=== PATIENT | female | born 1990 | race Caucasian/White ===

== ENCOUNTER 2023-09-19 08:48 | Emergency (ER) | payer BC, SELFPAY ==
[2023-09-19 08:50] VITALS: BP 125/87; PULSE 102; RESP 18; TEMP 36.7; O2SAT 98; BMI 37.2
[2023-09-19 08:54] VITALS: BP 125/87; PULSE 94; O2SAT 97
--- NOTE | 2023-09-19 08:56 | PC.NURSE ---
DR HOOKS AT BEDSIDE
--- NOTE | 2023-09-19 08:59 | XR_ITS ---
FINAL REPORT CLINICAL HISTORY: fall yesterday, anterior pain FINDINGS: Left ankle Three views were obtained. There is no acute fracture or dislocation. The joint spaces appear normal. There is mild soft tissue swelling about the ankle. IMPRESSION: No acute process. Reviewed, Interpreted and Dictated by Kishor Clifton MD Transcribed by Marie Álvarez Authenticated and [facility]
--- NOTE | 2023-09-19 08:59 | ED_ITS ---
Discharge Plan Disposition Patient Disposition: Home, Self-Care Condition: Good Prescriptions Prescriptions: No Action aspirin [Aspir-81] 81 mg Tablet,Delayed Release (Dr/Ec) 81 mg PO DAILY Referrals Follow up/Referrals: Nan Núñez APRN [Primary Care Provider] - See instructions Activity Restrictions/Add. Instructions Additional Instructions/Restrictions: You were evaluated in the ER. You are appropriate for discharge at this time. Use the crutches if needed to help you get around. Perform range of motion exercises multiple times a day, tracing the capital letters of the alphabet with your big toe. Take Tylenol and ibuprofen for pain, do not exceed the recommended doses on the bottle. Follow-up with your primary care physician in a few days for reevaluation. Return to the ER with new, worsening, or otherwise concerning symptoms. Clinical Impressions Clinical Impression: Ankle pain, left Print Language Print Language: Georgian Discharge ED Provider: Jose Layne General Adult HPI General Chief complaint: PAIN Stated complaint: AO left ankle poss broke Time Seen by Provider: 09/19/23 08:55 History of Present Illness HPI narrative: 32-year-old male presents to the ER for concerns of left ankle pain. She states she fell yesterday and thought she may be broke it but was able to walk on it with her 's assistance. She put a brace that she had from a previous ankle fracture and was able to ambulate yesterday. This morning when she woke up she had severe pain with weightbearing and decided to come to the ER for an x-ray. She is worried about possible fracture. Patient states most of her pain is in the front part of her ankle. Her only daily medication is aspirin. Related Data Home Medications ?Medication ?Instructions ?Recorded ?Confirmed aspirin 81 mg tablet,delayed 81 mg PO DAILY 09/19/23 09/19/23 release Allergies Allergy/AdvReac Type Severity Reaction Status Date / Time acetaminophen [From Percocet] Allergy Verified 09/19/23 09:05 oxycodone [From Percocet] Allergy Verified 09/19/23 09:05 [facility] Disclaimer: The information contained in this section may have been updated after the patient was seen, as this information can be updated by other users. Surgical History (Updated 09/19/23 @ 09:11 by Sharmin Wilfrid, RN) S/P total hysterectomy with removal of both tubes and ovaries History of renal stent Status post biopsy of kidney Hx of appendectomy History of cholecystectomy H/O: hysterectomy Social History Smoking Status: Never smoker alcohol intake: never current occupational status: other Travel in the last 8 weeks: None ROS Obtained: Yes All systems reviewed & no additional complaints except as documented Musculoskeletal Musculoskeletal: Reports arthralgias and Reports joint swelling Physical Exam General General appearance: alert and in no apparent distress Head Head exam: atraumatic and normocephalic Eye Eye exam: Present PERRL and EOMI ENT ENT exam: Present mucous membranes moist Neck Neck exam: Present normal inspection and full ROM Chest Chest inspection: Present symmetric chest wall rise Respiratory Respiratory exam: Absent respiratory distress or stridor Cardiovascular Cardiovascular exam: Present regular rate and normal rhythm Extremities Exam Extremities exam: Present full ROM (Painful but full) and tenderness (Tenderness palpation of the anterior ankle without deformity, neurovascularly intact, no other specific locations of tenderness) Neurological Exam Neurological exam: Present alert and oriented X3; Absent motor sensory deficit Psychiatric Psychiatric exam: Present normal affect and normal mood Skin Skin exam: Present warm and dry Medical Decision Making Anatoly Inquiry Pt receiving controlled substance: No Vital Signs: 09/19/23 08:50 09/19/23 08:54 09/19/23 09:00 Temperature 98.0 F Temperature Source Oral Pulse Rate 94 H 88 Pulse Rate [Radial] 102 H Respiratory Rate 18 Blood Pressure 125/87 122/78 Blood Pressure [Right Arm] 125/87 Blood Pressure Mean [Right Arm] 99 Blood Pressure Source [Right Arm] Automatic Cuff Blood Pressure Position [Right Arm] Sitting 02 Sat by Pulse Oximetry 98 97 96 Oxygen Delivery Method Room Air Room Air Room Air 09/19/23 09:31 09/19/23 10:01 Temperature Temperature Source Pulse Rate 89 90 Pulse Rate [Radial] Respiratory Rate Blood Pressure 125/86 125/81 Blood Pressure [Right Arm] Blood Pressure Mean [Right Arm] Blood Pressure Source [Right Arm] Blood Pressure Position [Right Arm] 02 Sat by Pulse Oximetry 98 98 Oxygen Delivery Method Room Air Orders (Tests/Meds): ED MEDICATIONS Discontinued Medications Generic Name Dose Route Start Last Admin Trade Name Freq PRN Reason Stop Dose Admin Acetaminophen 1,000 mg 09/19/23 09:00 09/19/23 09:03 Acetaminophen 500mg Tab PO 09/19/23 09:01 1,000 mg ONCE ONE Administration Ibuprofen 600 mg 09/19/23 09:00 09/19/23 09:03 Ibuprofen 600 Mg Tablet PO 09/19/23 09:01 600 mg ONCE ONE Administration ORDERS Category Date Time Status Ankle XR - Left minimum 3 Views [XR ankle LT min 3V] Exams 09/19/23 08:59 Taken Stat Medical Decision Narrative: In summary, this 32-year-old female presents to the emergency department today with left ankle pain. On initial evaluation patient is hemodynamically stable, afebrile, mild tenderness to palpation of the anterior ankle without deformity or significant swelling, neurovascularly intact distally. Differential diagnosis includes but is not limited to fracture, dislocation, sprain, soft tissue injury. Based on these concerns, I ordered x-ray left ankle. Patient received Tylenol, ibuprofen in the ER. X-ray personally interpreted does not demonstrate acute osseous injury, see radiology read for final interpretation. On reassessment patient continues to be stable. I encouraged her to continue using the brace and provided crutches for ambulation assistance. I gave her instructions on range of motion exercises, pain management, follow-up, and strict return precautions for the ER. She indicated understanding and the patient was discharged in stable condition. Critical Care Critical Care Time Critical Care Time: No
[2023-09-19 09:00] VITALS: BP 122/78; PULSE 88; O2SAT 96
[2023-09-19] MEDS: ACETAMINOPHEN 500MG TAB 1000 MG PO (09:03)
[2023-09-19] MEDS: IBUPROFEN 600 MG TABLET PO (09:03)
--- NOTE | 2023-09-19 09:08 | PC.NURSE ---
XR AT BEDSIDE
[2023-09-19 09:31] VITALS: BP 125/86; PULSE 89; O2SAT 98
[2023-09-19 10:01] VITALS: BP 125/81; PULSE 90; O2SAT 98
--- NOTE | 2023-09-19 10:05 | PC.NURSE ---
ROUNDED ON PT, UPDATED ON POC. NO NEEDS AT THIS TIME
--- NOTE | 2023-09-19 10:13 | PC.NURSE ---
called radiology to check on rad read, states they will check and send prelim
[2023-09-19 10:26] VITALS: BP 120/80; PULSE 88; RESP 18; TEMP 36.7; O2SAT 98
== END 2023-09-19 10:28 | disposition home or self-care (01) ==
PROVIDERS: Emergency Provider Emergency Medicine; PCP Nurse Practitioner
DX: M25.572 Pain in left ankle and joints of left foot (principal); W19.XXXA Unspecified fall, initial encounter
CPT/HCPCS: 73610; 99283